=== PATIENT | male | born 1930 | race Caucasian/White ===

== ENCOUNTER 2017-01-10 19:01 | Emergency (ER) | payer MEDICARE, BC ==
[~2017-01-10] VITALS: Ht 167.6 cm; Wt 89.0 kg
[~2017-01-10 19:01] MED LIST: ASPI-535 PO; ASPI1CPM8 PO; BENA20TA48 PO; CALC600T PO; DONE10TA7 PO; METO-103 PO; MULT1TAB59 PO; NIAC250T15 PO; OMEG1CAP22 PO; SIMV20TA2 PO; SOLI5TAB5 PO; VALS320T11 PO
[2017-01-10 19:04] VITALS: Ht 167.6 cm; Wt 89.0 kg
[2017-01-10] MEDS ORDERED: SOD CHLORIDE 0.9% 500 ML IV STA (20:31)
[2017-01-10] MEDS ORDERED: LORAZEPAM 2 MG INJ IV ONE (21:00)
--- NOTE | 2017-01-10 21:52 | ERD ---
ER Documentation Chief Complaint Chief Complaint anxiety began while going through bills. no pain. HPI 86-year-old man here for anxiety symptoms including feeling dizzy, and "not feeling well". His caretakers at the bedside and states he has had these symptoms multiple times and has them about once or twice per week. He was just seen and evaluated at [facility], for workup as an inpatient was unremarkable and he was discharged. Patient denies chest pain or shortness of breath, no loss of consciousness, no fevers or chills. ROS All systems reviewed and are negative except as per history of present illness. Medications Home Meds Active Scripts Alprazolam* (Xanax*) 0.5 Mg Tab, 0.5 MG PO TID for ANXIETY, #12 TAB Prov:JAQUELINE DICK MD 01/10/17 Reported Medications Niacin* (Slo-Niacin*) 250 Mg Tablet.sa, 250 MG PO QHS, TAB 01/10/17 Metoprolol Succinate* (Toprol XL*) 25 Mg Tab.sr.24h, 25 MG PO DAILY, #30 TAB HOLD FOR SBP<110 OR PULSE RATE LOWER THAN 60 01/10/17 Losartan Potassium* (Losartan Potassium*) 50 Mg Tablet, 50 MG PO DAILY, TAB HOLD FOR SYSTOLIC BP<110 OR PULSE RATE LOWER THAN 60 01/10/17 Clifton-3 Fatty Acids/Fish Oil (Fish Oil 1,000 mg Capsule) 1 Each Capsule, 1 EACH PO DAILY, CAP 01/10/17 Ferrous Sulfate* (Ferrous Sulfate*) 325 Mg Tabec, 325 MG PO DAILY, TAB 01/10/17 Docusate Sodium* (Colace*) 100 Mg Capsule, 100 MG PO BID, #60 CAP 01/10/17 Calcium Carbonate-Vitamin D3 (Calcium 500 + Vit D 200 Caplet) 1 Each Tablet, 1 TAB PO BID, TAB 01/10/17 Clonidine Hcl* (Clonidine Hcl*) 0.1 Mg Tab, 0.1 MG PO DAILY Y for NEEDED, TAB 01/10/17 Turmeric Root Extract (Turmeric) Unknown Strength Capsule, 1 CAP PO DAILY, CAP 01/10/17 Oxybutynin Chloride* (Ditropan* XL) 10 Mg Tab.er.24, 10 MG PO DAILY, TAB.SA 01/10/17 Multivitamins* (Multivitamins*) 1 Tab Tablet, 1 TAB PO DAILY 11/27/10 Simvastatin (Simvastatin) 20 Mg Tablet, 20 MG PO DAILY 11/27/10 Dipyridamole-Aspirin* (Aggrenox*) 1 Cap Capsr, 1 CAP PO BID 11/27/10 Discontinued Reported Medications Clifton-3 Fatty Acids/Vitamin E (Clifton-3 Fish Oil Softgel) 1 Cap Capsule, 1 CAP PO BID 11/27/10 Niacin (Niacin) 250 Mg Tablet, 250 MG PO DAILY 11/27/10 Calcium Carbonate (Calcium) 600 Mg Tablet, 600 MG PO BID 2 TABS 11/27/10 Aspirin Ec (Aspir 81) 81 Mg Tablet.dr, 81 MG PO DAILY 11/27/10 Solifenacin* (Vesicare*) 5 Mg Tablet, 5 MG PO DAILY 11/27/10 Valsartan* (Diovan*) 320 Mg Tablet, 320 MG PO DAILY 11/27/10 Donepezil* (Aricept*) 10 Mg Tablet, 10 MG PO DAILY 11/27/10 Benazepril Hcl* (Benazepril Hcl*) 20 Mg Tablet, 20 MG PO DAILY 11/27/10 Metoprolol Succinate (Toprol Xl) 50 Mg Tab.sr.24h, 50 MG PO DAILY 11/27/10 Allergies Allergies: Coded Allergies: Penicillins (Verified Allergy, Mild, BLACK TUNG, 01/10/17) PMhx/Soc Dementia, history of TIA, hypertension, CAD, anxiety, history of anemia History of Surgery: Yes (CAROTID ENDARECTOMY) Hx Neurological Disorder: Yes (aloc forgetful) Hx Miscellaneous Medical Probl: Yes (HTN, CAROTID STENOSIS) Hx Alcohol Use: Yes (occasionally /whisky) Hx Substance Use: No Hx Tobacco Use: No Smoking Status: Never smoker FmHx Family History: No diabetes Physical Exam Vitals Vital Signs Date Time Temp Pulse Resp B/P Pulse Ox O2 Delivery O2 Flow Rate FiO2 01/11/17 00:19 98.1 82 18 136/81 100 Room Air 01/10/17 19:10 98.1 81 20 140/66 100 Room Air 01/10/17 19:04 98.1 85 20 152/66 100 Physical Exam GENERAL: Well-developed, well-nourished, anxious, afebrile HEENT: Dry mucous membranes, pink conjunctiva, no cervical spine tenderness or step-off deformities, no goiter, no jaundice or icterus, extraocular movements intact without pain. No submandibular induration, and no pharyngeal erythema NEURO: Alert and oriented 3, cranial nerves II through XII intact bilaterally, pupils equal round reactive to light, no focal deficits or facial asymmetry, sensation intact distally Strength 5/5 in upper and lower extremities bilaterally CARDIAC: Regular rate and rhythm, no murmurs rubs or gallops LUNGS: Clear bilaterally no wheezing crackles or stridor ABDOMEN: Soft nontender, no guarding, no rigidity, no rebound, no psoas sign no obturator sign. Normoactive bowel sounds SKIN: Warm and dry to touch, no abrasions, contusions, or hematomas, no lacerations, no ecchymosis, no target lesions, and without ulcers EXTREMITIES: No clubbing cyanosis or edema, calves are bilaterally symmetrical, no Homans sign, no popliteal cord sign. Distal pulses equal and bilateral PSYCH: Appears anxious Result Diagram: 01/10/17214901/[id number]/172149 Results 24 hrs Laboratory Tests Test 01/10/17 21:50 White Blood Count 8.210^3/ul Red Blood Count 2.7910^6/ul Hemoglobin 8.5g/dl Hematocrit 26.5% Mean Corpuscular Volume 95.0fl Mean Corpuscular Hemoglobin 30.5pg Mean Corpuscular Hemoglobin Concent 32.1g/dl Red Cell Distribution Width 13.1% Platelet Count 43749^3/UL Mean Platelet Volume 10.5fl Neutrophils % 64.2% Lymphocytes % 19.4% Monocytes % 13.8% Eosinophils % 1.6% Basophils % 0.1% Nucleated Red Blood Cells % 0.0/100WBC Neutrophils # 5.310^3/ul Lymphocytes # 1.610^3/ul Monocytes # 1.110^3/ul Eosinophils # 0.110^3/ul Basophils # 0.010^3/ul Nucleated Red Blood Cells # 0.010^3/ul Sodium Level 137mmol/L Potassium Level 4.0mmol/L Chloride Level 106mmol/L Carbon Dioxide Level 23mmol/L Anion Gap 12 Blood Urea Nitrogen 24mg/dl Creatinine 1.14mg/dl Glucose Level 105mg/dl Calcium Level 8.6mg/dl Total Bilirubin 0.1mg/dl Direct Bilirubin 0.00mg/dl Indirect Bilirubin 0.1mg/dl Aspartate Amino Transf (AST/SGOT) 21IU/L Alanine Aminotransferase (ALT/SGPT) 28IU/L Alkaline Phosphatase 54IU/L Troponin I < 0.012ng/ml Total Protein 5.8g/dl Albumin 3.2g/dl Globulin 2.60g/dl Albumin/Globulin Ratio 1.23 Lipase 140U/L Current Medications Medications (Trade) Dose Ordered Sig/Uriah Route PRN Reason Start Time Stop Time Status Last Admin Dose Admin Sodium Chloride (NS) 500 ml @ 500 mls/hr Q1H STAT IV 01/10/17 20:31 01/10/17 21:30 DC 01/10/17 21:23 Lorazepam (Ativan) 0.5 mg ONCE ONCE IV 01/10/17 21:00 01/10/17 21:01 DC 01/10/17 21:23 [facility] IV line was established patient was placed on salesperson women's hats rhythm strip revealed a sinus rhythm at about 70 bpm with upright P and T waves. Patient was afebrile EKG performed, read by me: 71 bpm, first-degree AV block at 320 ms, normal sinus rhythm, normal axis, no acute ST segment changes, narrow QRS complex, with good R-wave progression in precordial leads. One AP view of the chest performed, read by me reveals no acute infiltrates, normal mediastinum, sharp costophrenic and cardiac borders, no air under the diaphragm. Otherwise unremarkable chest x-ray. I administered 500 cc normal saline intravenously for dehydration and lorazepam 0.5 mg IV 1 for anxiety. CBC revealed anemia, and electrolytes were unremarkable, liver function tests were normal, troponin was negative. Differential diagnoses considered, included but not limited to acute coronary syndrome, pulmonary embolism, aortic dissection, abdominal aortic aneurysm, sepsis, stroke, meningitis, encephalitis, pneumonia, appendicitis, cholecystitis , bowel obstruction, pyelonephritis, nephrolithiasis, cystitis, as well as metabolic, hematologic, and electrolyte abnormalities. As well as abscess, cellulitis, fractures, and dislocations. Patient feels much better at this time, and vital signs are normal, symptoms have improved. I did give strict instructions to return to the ED if symptoms continue or worsen, patient will otherwise follow-up with primary care physician. Patient understood instructions and agreed to plan. Disclaimer: Inadvertent spelling and grammatical errors are likely due to EHR/ dictation software use and do not reflect on the overall quality of patient care. Also, please note that the electronic time recorded on this note does not necessarily reflect the actual time of the patient encounter. Departure Diagnosis: Primary Impression: Anxiety attack Additional Impressions: Dehydration Anemia Anemia type: unspecified type Qualified Code: D64.9 - Anemia, unspecified type Condition: Good JAQUELINE DICK MD Jan 10, 2017 21:52
--- NOTE | 2017-01-10 22:06 | RADRPT ---
PROCEDURE: XR Chest. CLINICAL INDICATION: Abdominal pain. TECHNIQUE: Single frontal view. COMPARISON: 09/23/2013. FINDINGS: There is elevation of the right hemidiaphragm and mild atelectasis at the right lung base. Lungs are otherwise clear. There is a probable hiatus hernia. The heart size is normal. There is no pleural effusion. There is no pneumothorax. IMPRESSION: 1. Elevation of the right hemidiaphragm. 2. Mild atelectasis at the right lung base. 3. Probable hiatus hernia. 4. Otherwise unremarkable chest radiograph. RPTAT: QQ .Victoriano Anaya MD, MD Date Time Electronically viewed and signed by .Victoriano Anaya MD, on 01/10/2017 22:06 .R/
[2017-01-10] MEDS ORDERED: OXYB10TA6 PO (22:10)
[2017-01-10] MEDS ORDERED: TURM500C9 PO (22:12)
[2017-01-10] MEDS ORDERED: CLON-379 PO (22:13)
[2017-01-10] MEDS ORDERED: CALC-72 PO (22:16)
[2017-01-10] MEDS ORDERED: DOCU-144 PO (22:16)
[2017-01-10] MEDS ORDERED: OMEG-135 PO (22:17)
[2017-01-10] MEDS ORDERED: FER325 PO (22:17)
[2017-01-10] MEDS ORDERED: LOSA50TA6 PO (22:18)
[2017-01-10] MEDS ORDERED: METO-335 PO (22:19)
[2017-01-10] MEDS ORDERED: NIAC250T2 PO (22:20)
[2017-01-10] MEDS ORDERED: ALPR0.5T PO (23:51)
[2017-01-11 00:19] VITALS: BP 136/81; PULSE 82; RESP 18; TEMP 98.1
== END 2017-01-11 00:24 | disposition home or self-care (01) ==
LOC: E/R 19:01
DX: F41.9 Anxiety disorder, unspecified (principal); E86.0 Dehydration; D64.9 Anemia, unspecified; I10 Essential (primary) hypertension; I25.10 Atherosclerotic heart disease of native coronary artery without angina pectoris; Z79.82 Long term (current) use of aspirin
CPT/HCPCS: 36415; 71010; 80053; 83690; 84484; 85025; 93005; 96374; 99285; J2060; J7040